=== PATIENT | male | born 1955 | race Hispanic/Latino ===

== ENCOUNTER 2017-12-29 09:28 | Day surgery (SDC) | payer BC ==
--- NOTE | 2017-12-29 09:47 | CP.SDSHP ---
Same Day Surgery H & P - History Proposed Procedure: colonoscopy Pre-Op Diagnosis: h/o colon polyps - Allergies Allergies: Allergies No Known Allergies Allergy (Verified 06/22/17 12:25) - Physical Exam General Appearance: nl Mental Status: Alert & Oriented x3 Neuro: WNL Heart: WNL Lungs: WNL GI: WNL - {Optional Preform as Required} Abdomen: WNL - Impression Impression: h/o colon polyps Pt. Evaluated Today:Candidate for Anesthesia & Procedure: Yes - Date & Time Date: 12/29/17 Time: 09:47 Short Stay Discharge - Short Stay Discharge Admitting Diagnosis/Reason for Visit: SCREENING Disposition: HOME/ ROUTINE
[2017-12-29 09:55] VITALS: BMI 30.1
[2017-12-29] MEDS ORDERED: Lidocaine Hydrochloride 5 ML INJ ONE (10:26)
[2017-12-29] MEDS ORDERED: Propofol 10 mg/ml Inj (20 ML) ONE ×2 (10:26→10:30)
[2017-12-29 11:32] VITALS: TEMP 99; O2SAT 98
[2017-12-29 12:01] VITALS: BP 120/76; PULSE 76; RESP 18
== END 2017-12-29 12:20 | disposition home or self-care (01) ==
LOC: C.ENDO 09:28
PROVIDERS: ATTEND Internal Medicine
DX: Z12.11 Encounter for screening for malignant neoplasm of colon (principal); K57.30 Diverticulosis of large intestine without perforation or abscess without bleeding; K64.8 Other hemorrhoids
CPT/HCPCS: 45378; J2704